=== PATIENT | male | born 1995 | race Caucasian/White ===

== ENCOUNTER 2017-03-28 12:37 | Emergency (ER) | payer OTHER ==
[~2017-03-28] VITALS: Ht 167.6 cm; Wt 97.7 kg
[2017-03-28 13:13] LABS: GLUCOSE, URINE (UA) NEGATIVE (NEGATIVE); KETONES,URINE TRACE mg/dL (NEGATIVE); LEUKOCYTE ESTERASE ,URINE SMALL (NEGATIVE); PH,URINE 5.5 (5.0-8.0); PROTEIN,URINE NEGATIVE (NEGATIVE)
[2017-03-28 13:20] LABS: APPEARANCE,URINE HAZY (CLEAR); OCCULT BLOOD,URINE SMALL (NEGATIVE)
[2017-03-28 13:21] LABS: SQUAMOUS EPITHELIAL CELL,UR Few /LPF (None Seen)
[2017-03-28] MEDS ORDERED: CefTRIAXone SODIUM 1 GM/VIAL IM ONE (14:30)
[2017-03-28] MEDS ORDERED: AZITHROMYCIN 250 MG TABLET PO ONE (14:30)
[2017-03-28] MEDS ORDERED: LIDOCAINE HCL/PF 1% 2 ML VIAL IM ONE (14:30)
[2017-03-28 15:02] VITALS: BP 139/79
[2017-03-30 20:07] LABS: GC DNA N.A. AMPLIFY Negative (Negative)
== END 2017-03-28 15:06 | disposition home or self-care (01) ==
LOC: EMS 12:40
DX: N34.2 Other urethritis (principal); R03.0 Elevated blood-pressure reading, without diagnosis of hypertension; F17.210 Nicotine dependence, cigarettes, uncomplicated; F12.90 Cannabis use, unspecified, uncomplicated
CPT/HCPCS: 81001; 87491; 87591; 96372; 99284; J0696; J3490

== ENCOUNTER 2019-04-12 17:50 | Emergency (ER) | payer OTHER ==
[~2019-04-12] VITALS: Ht 167.6 cm; Wt 86.4 kg
[2019-04-12] MEDS ORDERED: ALBUTEROL SULFATE 2.5 MG/0.5 ML NEB SOLUTION NEB ONE (21:00)
[2019-04-12] MEDS ORDERED: 0.9% SODIUM CHLORIDE 5 ML NEB SOLUTION NEB ONE ×2 (21:04→21:11)
[2019-04-12 23:23] VITALS: BP 121/77
== END 2019-04-12 23:24 | disposition home or self-care (01) ==
LOC: EMS 17:53
DX: J45.909 Unspecified asthma, uncomplicated (principal); J06.9 Acute upper respiratory infection, unspecified; F17.210 Nicotine dependence, cigarettes, uncomplicated; F12.90 Cannabis use, unspecified, uncomplicated; Z98.890 Other specified postprocedural states
CPT/HCPCS: 94640; 99406

== ENCOUNTER 2021-03-25 09:22 | Emergency (ER) | payer OTHER ==
[~2021-03-25] VITALS: Ht 167.6 cm; Wt 95.5 kg
[2021-03-25 11:43] VITALS: BP 124/84
== END 2021-03-25 11:43 | disposition home or self-care (01) ==
LOC: EMS 09:57
DX: S80.11XA Contusion of right lower leg, initial encounter (principal); F17.210 Nicotine dependence, cigarettes, uncomplicated; F12.90 Cannabis use, unspecified, uncomplicated; W22.8XXA Striking against or struck by other objects, initial encounter; Y93.01 Activity, walking, marching and hiking; Y92.89 Other specified places as the place of occurrence of the external cause
CPT/HCPCS: 99283